=== PATIENT | female | born 2000 | race Caucasian/White ===

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

== ENCOUNTER 2022-04-24 21:22 | Observation (INO) | payer OTHER, SELFPAY ==
[2022-04-24 21:23] VITALS: BP 106/96; PULSE 77; RESP 18; TEMP 35.6; O2SAT 99; BMI 24.3
--- NOTE | 2022-04-24 22:05 | US_ITS ---
EXAM: US PELVIS TRANSVAGINAL CLINICAL INDICATION: severe R pelvic pain TECHNIQUE: Transvaginal pelvic ultrasound was performed with grayscale and color Doppler imaging. Transvaginal imaging was used for better evaluation of the endometrium and adnexa. This report was created using [employer] technology. COMPARISON: None. FINDINGS: UTERUS/CERVIX: Uterus: 8.2 x 5.0 x 2.8 cm. Endometrium: 3.3 mm. Anteverted. There is no uterine mass. RIGHT OVARY: 3.8 x 4.5 x 2.6 cm with normal Doppler flow. LEFT OVARY: 4.1 x 3.2 x 2.3 cm, with normal Doppler flow. FREE FLUID: None. BLADDER: Empty bladder which cannot be evaluated with this probe. US/Transvaginal Non- IMPRESSION: No acute findings in the pelvis. Electronically Signed: Missael Reeder MD at 23:50 EST ,
--- NOTE | 2022-04-24 22:07 | EDS_ITS ---
HPI <Dr. Jaiden Espinoza MD - Last Filed: 04/26/22 16:36> HPI - Female History of Present Illness Chief Complaint: Female C/O Informant: patient Pain Pain: Positive for Pelvic Pain Onset: Weeks (1) Narrative Narrative: Patient presents saying that she has been having her menstrual cycle for the past week, with mild menstrual cramping but today it became much worse and focused on the right. She has had some nausea with it now and vomited once. She denies any urinary symptoms. Her vaginal bleeding has been steadily tapering off since it started earlier in the week, this has been her normal menstrual cycle or so she thought until this, she states she is sexually active but does not believe she is . She denies any fevers or chills. She denies any pain into her back. PFSH <Dr. Jaiden Espinoza MD - Last Filed: 04/26/22 16:36> PFSH Medical History History of frequent headaches Home Medications bupropion HCl 150 mg 24 hr tablet, extended release 150 mg PO DAILY 04/24/22 [History Last Taken Unknown] oxycodone-acetaminophen 5 mg-325 mg tablet 1 - 2 tab PO Q6H PRN pain 3 days #10 tabs 04/25/22 [Rx Last Taken Unknown] Allergy/AdvReac Type Severity Reaction Status Date / Time red dye Allergy Mild hives Verified 04/24/22 21:24 gluten Allergy Rash Verified 04/24/22 21:24 Family History Grandfather Myocardial infarction Brother Epilepsy Social History current occupational status: student current occupation: [employer] Smoking Status: Never smoker alcohol intake: current alcohol intake frequency: holidays/special occasions only substance use type: does not use caffeine: Yes (occasionally) what type of physical activity do you participate in: other details: plays sports in school seatbelt use: always additional social history: Single ROS <Dr. Jaiden Espinoza MD - Last Filed: 04/26/22 16:36> ROS ED Constitutional Constitutional ED: Denies chills or fever(s) Eyes Eyes: Denies change in vision or diplopia ENT ENT ED: Denies rhinorrhea or sore throat Cardiovascular Cardiovascular: Denies chest pain or palpitations Respiratory/Chest Respiratory/Chest: Denies cough or dyspnea Gastrointestinal Gastrointestinal: Reports abdominal pain, nausea and vomiting; Denies diarrhea Genitourinary Genitourinary ED: Reports as per HPI; Denies dysuria or hematuria Musculoskeletal Musculoskeletal: Denies back pain or neck pain Integumentary Denies abscess or rash Neurologic Neurologic: Denies headache(s), paresthesias or weakness Psychiatric Psychiatric: Denies anxiety or suicidal thoughts EXAM <Dr. Jaiden Espinoza MD - Last Filed: 04/26/22 16:36> Physical Exam Const Vital Signs: 04/24/22 21:23 04/24/22 23:22 Temperature 96.1 F L Temperature Source Temporal Pulse Rate 77 72 Respiratory Rate 18 15 Blood Pressure 106/96 H 128/81 H Blood Pressure Mean 99 96 Pulse Ox 99 100 Oxygen Delivery Method Room Air Room Air Positive well nourished and well developed General Appearance ED: well developed and NAD HEENT Reports moist mucous membranes normocephalic and atraumatic Eyes PERRL and EOMs intact bilaterally Neck full ROM and supple Resp normal respiratory effort and clear to auscultation bilaterally Cardio regular rate, regular rhythm and no murmurs GI non-distended GI Narrative: Tender right mid abdomen and lower quadrant. Mild voluntary guarding in the right lower quadrant, no rebound tenderness, no other areas of tenderness. Auscultation: normoactive bowel sounds Palpation: soft Back/Spine no CVA tenderness General Back: other FROM Extremity normal to inspection General Extremety ED: Negative for edema, pulses abnormal or tenderness General Extremity: Negative for edema or pulses abnormal Neuro oriented x3, CN's II-XII intact bilaterally and no sensory deficits noted Sensorium / Orientation: awake and alert Motor Exam: strength 5/5 throughout Skin no rashes or lesions noted and no wounds <Dr. Bert Vega MD - Last Filed: 04/25/22 01:40> Physical Exam Const Vital Signs: 04/24/22 21:23 04/24/22 23:22 Temperature 96.1 F L Temperature Source Temporal Pulse Rate 77 72 Respiratory Rate 18 15 Blood Pressure 106/96 H 128/81 H Blood Pressure Mean 99 96 Pulse Ox 99 100 Oxygen Delivery Method Room Air Room Air MDM <Dr. Jaiden Espinoza MD - Last Filed: 04/26/22 16:36> [facility] Narrative Medical decision making narrative: Given the patient's complaints, this suggest possible [employer] etiology of her discomfort, so I first obtained a , which was negative, in addition to a transvaginal ultrasound of the pelvis in attempting to rule in or rule out torsion or other ovarian etiology such as a ruptured cyst, for this pain. The ultrasound is normal. Her CBC returned showing a leukocytosis of 19.5, so now I am more suspicious this could be appendicitis, she is still in a lot of pain and is given morphine in addition to the initial dose, and sent for CT with IV contrast, and prior to resulting I discussed the images with Dr. Alicia, who agrees the appendix may look a little thickened, it is retrocecal and in relatively unusual location, I reevaluated the patient, she is mildly tender in the right pelvis but MORE tender in the right lateral mid abdomen now, which is consistent with where we see the appendix on CT, raising her suspicion for possible early appendicitis. Lab Data Attestation: I reviewed the patient's lab results. Labs: Laboratory Results - last 24 hr 04/24/22 04/24/22 04/24/22 22:16 22:16 Unknown WBC 19.5 H RBC 4.78 Hgb 14.2 Hct 40.8 MCV 85.4 MCH 29.7 MCHC 34.8 RDW Std Deviation 36.0 RDW Coeff of Juan Pablo 11.7 Plt Count 349 MPV 9.2 Immature Gran % (Auto) 0.400 Neut % (Auto) 89.9 H Lymph % (Auto) 4.6 L Blaine % (Auto) 4.6 Eos % (Auto) 0.2 Baso % (Auto) 0.3 Absolute Neuts (auto) 17.5 H Absolute Lymphs (auto) 0.90 Nucleated RBC % 0 Sodium 136 Potassium 3.3 L Chloride 104 Carbon Dioxide 22.0 Anion Gap 10 BUN 14 Creatinine 0.93 Estim Creat Clear Calc 79.16 Est GFR (MDRD) Af Amer 97 Est GFR (MDRD) Non-Af 81 BUN/Creatinine Ratio 15.0 Glucose 137 H Calcium 9.3 Serum , Qual NEGATIVE Radiography Diagnostic Testing: Clinical Impression(s) from Imaging Studies Transvaginal US 04/24/22 22:05 IMPRESSION: No acute findings in the pelvis. Electronically Signed: Missael Reeder MD at 23:50 EST , <Dr. Bert Vega MD - Last Filed: 04/25/22 01:40> [facility] Narrative Medical decision making narrative: Given the patient's complaints, this suggest possible [employer] SU[employer] SUPERVISOR etiology of her discomfort, so I first obtained a , which was negative, in addition to a transvaginal ultrasound of the pelvis in attempting to rule in or rule out torsion or other ovarian etiology such as a ruptured cyst, for this pain. The ultrasound is normal. Her CBC returned showing a leukocytosis of 19.5, so now I am more suspicious this could be appendicitis, she is still in a lot of pain and is given morphine in addition to the initial dose, and sent for CT with IV contrast, and prior to resulting I discussed the images with Dr. Alicia, who agrees the appendix may look a little thickened, it is retrocecal and in relatively unusual location, I reevaluated the patient, she is mildly tender in the right pelvis but MORE tender in the right lateral mid abdomen now, which is consistent with where we see the appendix on CT, raising her suspicion for possible early appendicitis. Patient was turned over to me pending results of her CAT scan reading. This was read as consistent with acute appendicitis. I did discuss the case again with surgery. She is planning to come in this morning to arrange surgery. We are calling the team in. We will hold her in the emergency department pending that so we can manage pain and nausea. I did recheck the patient. She is getting nauseated and the pain is coming back so we will get her further meds. She is already gotten IV fluids. She has gotten antibiotics. She is NPO. Lab Data Labs: Laboratory Results - last 24 hr 04/24/22 04/24/22 04/24/22 22:16 22:16 Unknown WBC 19.5 H RBC 4.78 Hgb 14.2 Hct 40.8 MCV 85.4 MCH 29.7 MCHC 34.8 RDW Std Deviation 36.0 RDW Coeff of Juan Pablo 11.7 Plt Count 349 MPV 9.2 Immature Gran % (Auto) 0.400 Neut % (Auto) 89.9 H Lymph % (Auto) 4.6 L Blaine % (Auto) 4.6 Eos % (Auto) 0.2 Baso % (Auto) 0.3 Absolute Neuts (auto) 17.5 H Absolute Lymphs (auto) 0.90 Nucleated RBC % 0 Sodium 136 Potassium 3.3 L Chloride 104 Carbon Dioxide 22.0 Anion Gap 10 BUN 14 Creatinine 0.93 Estim Creat Clear Calc 79.16 Est GFR (MDRD) Af Amer 97 Est GFR (MDRD) Non-Af 81 BUN/Creatinine Ratio 15.0 Glucose 137 H Calcium 9.3 Serum , Qual NEGATIVE Radiography Diagnostic Testing: Clinical Impression(s) from Imaging Studies Transvaginal US 04/24/22 22:05 IMPRESSION: No acute findings in the pelvis. Electronically Signed: Missael Reeder MD at 23:50 EST , Discharge Plan Dx/Rx/DC Orders Clinical Impression: Acute appendicitis, Leukocytosis, Nausea Disposition Disposition: Acute Care Hospital [facility] Discharge Date/Time: 04/25/22 05:14
[2022-04-24] MEDS: Ondansetron 4 MG/2 ML Vial IV (22:17)
[2022-04-24] MEDS: 0.9% Normal Saline 1,000 ML 1000 ML IV (22:17)
[2022-04-24] MEDS: Morphine 4 MG/ML Syringe IV ×2 (22:18→23:57)
[2022-04-24 22:30] LABS: Absolute Neutrophil Count 17.5 X10^3/uL (2.0-7.7); Basophil# 0.06 X10^3/uL; Basophil% 0.3 % (0-1); Eosinophil# 0.03 X10^3/uL; Eosinophils% 0.2 % (0-5); Hematocrit 40.8 % (37-47); Hemoglobin 14.2 g/dL (12.0-15.0); Lymphocyte % 4.6 % (19-41); Mean Corp Hgb Conc 34.8 g/dL (32-36); Mean Corpuscular Hgb 29.7 pg (27.0-32.0); Mean Corpuscular Volume 85.4 fL (81-99); Mean Platelet Vol. 9.2 fl (6.2-12.0); Monocyte% 4.6 % (0-10); NRBC Flagged by Analyzer 0 % (0-5); Neutrophil # 17.51 X10^3/uL (2.7-7.7); Neutrophil % 89.9 % (47-70); Platelet Count 349 K/mm3 (150-450); RBC Distribution Width CV 11.7 % (11.6-14.6); Red Blood Count 4.78 M/mm3 (4.2-5.4); White Blood Count 19.5 K/mm3 (4.4-11.0)
[2022-04-24 22:43] LABS: Internal QC Validated? YES +Cl - CLEAR BKGD; Pregnancy, Serum, hCG Quali. NEGATIVE Negative
[2022-04-24 23:22] VITALS: BP 128/81; PULSE 72; RESP 15; O2SAT 100
[2022-04-24 23:51] LABS: Anion Gap 10 (5-15); BUN 14 mg/dL (7-18); Calcium,Total 9.3 mg/dL (8.5-10.1); Chloride 104 mmol/L (98-107); Creatinine, Serum 0.93 mg/dL (0.55-1.02); EST Glomerular Filtration Rate 81 mL/min (>60); Est Glom Filt Rate - Afr Amer 97 mL/min (>60); Estimated Creatinine Clearance 79.16 ml/min; Glucose 137 mg/dL (74-106); Potassium 3.3 mmol/L (3.5-5.1); Sodium Level 136 mmol/L (136-145)
[2022-04-25] VITALS (9 sets, daily range): BP systolic 113–133; BP diastolic 70–82; PULSE 65–106; RESP 16–19; TEMP 36.8–37.5; O2SAT 95–100; BMI 24.3
[2022-04-25] MEDS: Ondansetron 4 MG/2 ML Vial IV (01:43)
[2022-04-25] MEDS: Morphine 4 MG/ML Syringe IV ×2 (01:43→04:38)
[2022-04-25] MEDS: 0.9% Normal Saline 1,000 ML 150 ML IV (04:38)
--- NOTE | 2022-04-25 04:55 | PCM.HP.STD ---
HPI - General General Date of Admission: 04/25/22 HPI Narrative RAFAEL TATUM, is a 22 F who presents to the ER due to right lower quadrant abdominal pain. The right lower quadrant pain to have started when she got to the ER however previous to that about 8 PM she was having nausea and vomiting and mid abdominal pain. Patient CT abdomen pelvis consistent with acute appendicitis patient white blood count of 19.5. Patient denies any other abdominal surgeries. Patient does Zosyn IV in the ER. [facility] Medical History (Updated 04/25/22 @ 01:[address] Bert Vega MD) History of frequent headaches Home Medications bupropion HCl 150 mg 24 hr tablet, extended release 150 mg PO DAILY 04/24/22 [History Last Taken Unknown] Allergy/AdvReac Type Severity Reaction Status Date / Time red dye Allergy Mild hives Verified 04/24/22 21:24 gluten Allergy Rash Verified 04/24/22 21:24 Family History Grandfather Myocardial infarction Brother Epilepsy Social History (Updated 03/25/21 @ 13:49 by Carmen Fenton) current occupational status: student current occupation: [employer] [employer] [facility] [employer] Smoking Status: Never smoker alcohol intake: current alcohol intake frequency: holidays/special occasions only substance use type: does not use caffeine: Yes (occasionally) what type of physical activity do you participate in: other details: plays sports in school seatbelt use: always additional social history: Single Vital Signs Vital Signs Vital Signs: 04/24/22 21:23 04/24/22 21:56 04/24/22 23:22 Temperature 96.1 F L Temperature Source Temporal Pulse Rate 77 72 Respiratory Rate 18 15 Respiratory Pattern Normal Blood Pressure 106/96 H 128/81 H Blood Pressure Mean 99 96 Pulse Ox 99 100 Oxygen Delivery Method Room Air Room Air 04/25/22 01:00 04/25/22 02:56 Temperature 98.6 F Temperature Source Oral Pulse Rate 65 94 Respiratory Rate 19 H 17 Respiratory Pattern Blood Pressure 125/82 H 113/70 Blood Pressure Mean 96 84 Pulse Ox 100 100 Oxygen Delivery Method Room Air Room Air Weight Weight: 137 lb Body Mass Index (BMI) 24.3 Physical Exam Const alert, oriented x3 and no apparent distress HEENT normocephalic and head/scalp atraumatic Resp normal respiratory effort Cardio regular rate GI soft to palpation; Negative for non-distended Palpation: tender RLQ; Negative for guarding Extremity no clubbing, cyanosis or edema Neuro CN's II-XII intact bilaterally Psych mental status grossly normal Results Lab / Micro Data Result Diagrams: 04/24/22 22:16 04/24/22 Unknown Labs: Laboratory Results - last 24 hr 04/24/22 22:16: WBC 19.5 H, RBC 4.78, Hgb 14.2, Hct 40.8, MCV 85.4, MCH 29.7, MCHC 34.8, RDW Std Deviation 36.0, RDW Coeff of Juan Pablo 11.7, Plt Count 349, MPV 9.2, Immature Gran % (Auto) 0.400, Neut % (Auto) 89.9 H, Lymph % (Auto) 4.6 L, Mccone % (Auto) 4.6, Eos % (Auto) 0.2, Baso % (Auto) 0.3, Absolute Neuts (auto) 17.5 H, Absolute Lymphs (auto) 0.90, Nucleated RBC % 0 04/24/22 22:16: Serum , Qual NEGATIVE 04/24/22 : Sodium 136, Potassium 3.3 L, Chloride 104, Carbon Dioxide 22.0, Anion Gap 10, BUN 14, Creatinine 0.93, Estim Creat Clear Calc 79.16, Est GFR (MDRD) Af Amer 97, Est GFR (MDRD) Non-Af 81, BUN/Creatinine Ratio 15.0, Glucose 137 H, Calcium 9.3 Radiology Impression Transvaginal US 04/24/22 22:05 IMPRESSION: No acute findings in the pelvis. Electronically Signed: Missael Reeder MD at 23:50 EST , Abdomen/Pelvis CT 04/25/22 23:53 IMPRESSION: Findings consistent with acute appendicitis. Electronically Signed: Missael Reeder MD at 1:12 EST , ADDENDUM: 04/25/22 0134 IMPRESSION: Findings consistent with acute appendicitis. N.B. : ANISHA Noble, confirmed on 04/25/2022 01:27:55 (ET) that the healthcare facility has received the radiology report. Electronically Signed: Missael Reeder MD at 1:12 EST , Assessment & Plan Assessment/Plan (1) Acute appendicitis: (2) Leukocytosis: PLAN: Plan 1. Discussed procedure laparoscopic appendectomy, possible open along with the risk but not limited to bleeding, infection/abscess, injury to another organ (small bowel, colon, etc.), adhesion, hernia at incision sites, and anesthesia. Patient and her mother had no further question this time Lexi Alicia M.D. Pager: [phone] [facility] [address] [place] [address], [address] [place] [address] Office: [phone]
--- NOTE | 2022-04-25 05:20 | APP_PTH ---
PATIENT: RAFAEL TATUM LOC: MS3 U#:[id number] AGE/SX: 22/F ROOM: [id number] RE04/25/[address]: Dr. Lexi Alicia MD : 2000 BED: 1 DIS: 04/25/2022 SPEC #: [id number] RECD: 04/27/22 08:38 STATUS: MADALYN REAnnabel #: [id number] RAHEL: 04/25/22 05:[address]: Lexi Alicia DEPT: SURGICAL PATHOLOGY RECD BY: Lalo Hall ENTERED: 04/27/22 09:33 SP TYPE: APPENDIX OTHR DR: Dr. Ny Ramirez DO Tissues: Appendix, NOS Procedures: Surgery Specimen Level III HEADER OPERATION: Laparoscopic appendectomy PRE-OP DIAGNOSIS: Acute appendicitis TISSUE SUBMITTED: Appendix MICROSCOPIC DIAGNOSIS Appendix, appendectomy: Acute necrotizing appendicitis. Acute serositis. AM:juan daniel 04/28/2022 MICROSCOPIC DESCRIPTION Slides are reviewed. GROSS DESCRIPTION Received in fixative is one container labeled with the patient's name and designated appendix. The specimen consists of a C-shaped appendix measuring 7 cm in length and up to 1 cm in diameter. The attached periappendiceal adipose tissue measures 1 cm in width. The serosal surface is covered with alvarado, purulent exudate. No obvious perforation is identified. The mucosa is congested and hemorrhagic. The lumen contains a small amount of hemorrhagic material. No fecalith is identified. Natural Sciences Department Chair sections are submitted in one cassette. / FRANCISCO:juan daniel 04/27/2022 TC:2 CPT: 77549
--- NOTE | 2022-04-25 06:28 | PCM.OPRPT ---
Report of Operation Date of Procedure: 04/25/22 Pre-Operative Diagnosis: Acute appendicitis Post-Operative Diagnosis: Same Surgery/Procedure Performed:: Laparoscopic appendectomy Surgeon: Lexi Alicia Type of Anesthesia: General/Supplemental Anesthesiologist: Addy Guerrero Special Medications: Zosyn 3.375 g IV x1 given in the ER for acute appendicitis Specimen's removed: Appendix Estimated Blood Loss (mL): < 10 cc Description of Procedure: Indications: 22-year-old female presented to the ER with new right lower quadrant pain this morning. On workup she was found to have acute appendicitis on CT and a leukocytosis of 19.5. Patient was started on antibiotics in the ER for acute appendicitis-Zosyn IV x1 Description of the procedure: The patient was placed on operating table in supine position. General anesthesia was induced. A timeout was completed verifying correct patient, procedure, position and special equipment prior to beginning procedure. Abdomen was prepped and draped in usual sterile fashion. Incision was made in the natural skin line curvilinear below the umbilicus with a 15 blade scalpel. The fascia was elevated and incised. Entry into the peritoneum was confirmed visually and no bowel was noted in the vicinity of the incision. The Colvin trocar was placed under direct vision. Abdomen insufflated with a pressure of 12-15 mmHg. Patient tolerated insertion well. The scope was inserted and the abdomen inspected. No injuries from initial trocar placement were noted. Minimal amount of fluid was seen in the right lower quadrant. An direct visualization 2 -5 mm trocars were placed one above the symphysis pubis and below the hairline and one in the left lower quadrant lateral to the rectus muscle. Care is taken to avoid injury to the bladder and inferior epigastric vessels. The table was placed in Trendelenburg position with the right side elevated. The appendix was grasped with atraumatic grasper and elevated. It was noted to be inflamed. A window was developed in the mesoappendix at the point between the base of the appendix and the cecum. An endoscopic 45 mm linear cutting stapler blue load was then used to divide and staple the base of the appendix. Enseal was used to divide the mesoappendix. The appendix was withdrawn into the Colvin trocar after being placed endoscopically retrieval bag. Appendix was sent to pathology. The appendiceal stump was then irrigated and hemostasis was assured. Fluid was suctioned no other pathology was identified. Secondary trochars were removed under direct visualization. No bleeding was noted trocar sites. The laparoscope withdrawn and the umbilical trocar removed. The abdomen was allowed to collapse. Local anesthesia of 30 mL of 0.5% Marcaine was used at the incision sites. The umbilical trocar site was closed with the [id number] 0 Vicryl suture. The skin was closed using sutures of 4-0 Monocryl and Steri-Strips. The patient was extubated. The patient tolerated the procedure well and was taken to the postanesthesia care unit in satisfactory condition. Complications None
--- NOTE | 2022-04-25 06:32 | DCINST_ITS ---
Discharge Instructions Follow Up Care Test Results: Test results from this visit will be discussed in further detail at your follow- up appointment, if applicable. Discharge Plan Admission Attending Provider: Lexi Alicia Primary Care Provider: Ny Ramirez Instructions Additional Instructions / Restrictions: Okay to take ibuprofen 400-600 mg PO q6hr PRN along with the Percocet. Avoid Tylenol since there is already Tylenol in the Percocet. Take all pain meds with food. Percocet can cause constipation recommend taking daily stool softener (i.e. Colace/docusate) while taking the pain meds. Recommend starting some MiraLAX in 1 to 2 days if no bowel movement. If still no bowel movement the following day recommend taking 2 Dulcolax (5 mg laxative) and if not resolved 2 hours later take another 2 Dulcolax 5 mg tabs. Discharge Orders/Prescriptions Prescriptions: New oxycodone-acetaminophen 5-325 mg tablet 1 - 2 tab PO Q6H PRN (Reason: pain) 3 Days Qty: 10 0RF No Action bupropion HCl 150 mg tablet extended release 24 hr 150 mg PO DAILY Referrals / Follow Up: Ny Ramirez DO [Primary Care Provider] - Disposition Disposition (needs filled in before D/C Order can be placed): Home, Self Care
[2022-04-25] MEDS: oxyCODONE 5 MG Tablet PO (08:59)
[2022-04-25] MEDS: Ibuprofen 600 MG Tablet PO (10:56)
--- NOTE | 2022-04-25 23:53 | CT_ITS ---
ACR Level 3 findings have been noted. An addendum which confirms receipt of the report will follow. EXAM: CT ABDOMEN AND PELVIS WITH INTRAVENOUS CONTRAST CLINICAL INDICATION: RLQ pain TECHNIQUE: Helically acquired images were obtained of the abdomen and pelvis with intravenous contrast. This CT exam was performed using one or more of the following dose reduction techniques: automated exposure control, adjustment of the mA and/or kV according to patient size, and/or use of iterative reconstruction technique. This report was created using [employer] report generation technology. CONTRAST: IV 100mL Isovue-370 COMPARISON: None. FINDINGS: LOWER THORAX: Unremarkable. Lung bases are clear. No cardiomegaly. No significant pericardial effusion. ABDOMEN: LIVER: Unremarkable. Homogeneous. No focal mass. GALLBLADDER AND BILE DUCTS: Unremarkable. No calcified gallstones. No gallbladder distention or wall edema. No intra- or extrahepatic biliary ductal dilation. PANCREAS: Unremarkable. No focal cystic or solid mass. SPLEEN: Unremarkable. Normal size without focal cystic or solid mass. ADRENALS: Unremarkable. No nodules. KIDNEYS AND URETERS: Unremarkable. Normal renal size and position. No hydronephrosis. STOMACH AND BOWEL: Unremarkable. No stomach or bowel distention. No focal inflammatory change. PELVIS: APPENDIX: The appendix is dilated up to 9 mm with adjacent inflammatory changes, lying posterior to the ascending colon. BLADDER: Unremarkable. REPRODUCTIVE: Unremarkable as visualized. No mass. ABDOMEN and PELVIS: INTRAPERITONEAL SPACE: Unremarkable. No ascites or other fluid collection. No free air. BONES/JOINTS: Unremarkable. No suspicious lytic or blastic abnormality. SOFT TISSUES: Unremarkable. No discrete abdominal or pelvic wall hernia. VASCULATURE: Unremarkable. Abdominal aorta is non-dilated. LYMPH NODES: Unremarkable. No enlarged lymph nodes. CT/Abdomen/Pelvis W IV Cont ONLY IMPRESSION: Findings consistent with acute appendicitis. Electronically Signed: Missael Reeder MD at 1:12 EST ,
== END 2022-04-25 13:42 | disposition home or self-care (01) ==
LOC: ED 04-25 01:40 → AC 04-25 03:14 → MS3 04-25 03:15 → AC 04-25 06:37 → MS3 04-25 06:37
PROVIDERS: Admitting Provider Surgery; Emergency Provider Emergency Medicine; PCP Internal Medicine; Visit Provider Surgery
PROC: 0DTJ4ZZ Resection of Appendix, Percutaneous Endoscopic Approach (ICD-10-PCS; CPT 44970; principal; 2022-04-25 05:00)
DX: K35.80 Unspecified acute appendicitis (principal)
CPT/HCPCS: 44970; 00840; 74177; 76830; 80048; 84703; 85025; 88304; 96365; 96375; 96376; 99251; 99285; J7030; Q9967; A4216; C1760; G0463; J2405